=== PATIENT | male | born 1995 | race Caucasian/White ===

== ENCOUNTER 2018-05-31 03:08 | Emergency (ER) | payer BC, OTHER ==
[2018-05-31] MEDS ORDERED: Lorazepam 2 MG/ML VIAL ONE (04:12)
[2018-05-31 04:47] LABS: ALT (SGPT) 14 U/L (8-55); AST (SGOT) 13 U/L (5-34); Albumin 4.8 g/dL (3.5-5.0); Alkaline Phosphatase 89 U/L (40-150); Anion Gap 18 mmol/L (10-20); BUN (Urea Nitrogen) 7 mg/dL (8.9-20.6); Bilirubin, Total 0.3 mg/dL (0.2-1.2); Calc. Creatinine Clearance 0 mL/min (70-130); Carbon Dioxide 26 mmol/L (22-29); Chloride 105 mmol/L (98-107); Estimated GFR-MDRD Greater than 90; Globulin 2.9 g/dL (2.4-3.5); Glucose 96 mg/dL (70-105); Potassium 4.7 mmol/L (3.5-5.1); Protein, Total 7.7 g/dL (6.0-8.3); Sodium 144 mmol/L (136-145)
[2018-05-31 05:06] LABS: Hemoglobin 15.6 g/dL (14.0-18.0); Mean Corpuscular HGB CONC 33.7 g/dL (32.0-36.0); Mean Corpuscular Hemoglobin 28.5 pg (27.0-31.0); Mean Corpuscular Volume 84.6 fL (78.0-98.0); Platelet Count 198 thou/uL (130-400); RBC Distribution Width 11.6 % (11.5-14.5); Red Blood Cell (RBC) Count 5.48 mill/uL (4.70-6.10)
[2018-05-31 05:07] LABS: Band 3 % (5-11); MDiff Complete? YES; Neutrophil 81 % (42-75)
[2018-05-31 05:08] LABS: Lymphocytes 12 % (21-51); Metamyelocyte 1 % (0-0); Monocytes 3 % (0-10)
[2018-05-31 05:31] LABS: Bilirubin Negative (Negative); Blood, Urine Negative (Negative); Clarity Clear (Clear); Glucose, Urine (Dipstick) Negative (Negative); Leukocyte Negative (Negative); Nitrite Negative (Negative); Protein, Urine (Dipstick) Negative (Neg-Trace); Urobilinogen 0.2 mg/dL (0.2-1.0)
[2018-05-31 05:34] LABS: Bacteria/HPF None Seen HPF (None Seen); RBC/HPF 0-3 HPF (0-3); Squamous Epithelial 0-3 HPF (0-3); WBC/HPF 0-3 HPF (0-3)
[2018-05-31] MEDS ORDERED: Sodium Chloride 0.9% 1,000 ML BAG ONE (06:59)
--- NOTE | 2018-05-31 10:35 | RAD ---
PORTABLE CHEST: Date: 05/31/18 PROVIDED CLINICAL HISTORY: Dyspnea. FINDINGS: Cardiac and mediastinal silhouette within normal limits. Lungs appear clear. No pleural fluid or pneu mothorax apparent. IMPRESSION: No evidence for an acute cardiopulmonary process. POS: [facility]
== END 2018-05-31 06:18 | disposition home or self-care (01) ==
LOC: MADERS 03:08
DX: T67.5XXA Heat exhaustion, unspecified, initial encounter (principal); T43.611A Poisoning by caffeine, accidental (unintentional), initial encounter; F41.9 Anxiety disorder, unspecified; F17.210 Nicotine dependence, cigarettes, uncomplicated
CPT/HCPCS: 36415; 71045; 80053; 81001; 82550; 85025; 87086; 93005; 96360; 96361; J2060; J7050

== ENCOUNTER 2018-06-26 23:03 | Emergency (ER) | payer BC ==
[2018-06-26] MEDS ORDERED: Acetaminophen/Codeine 30-300mg Tablet ONE (23:32)
[2018-06-26] MEDS ORDERED: Benzonatate 100 MG CAP ONE (23:33)
[2018-06-26] MEDS ORDERED: Dexamethasone 4 MG TAB ONE (23:33)
== END 2018-06-27 00:42 | disposition home or self-care (01) ==
LOC: MADERS 23:03
DX: J20.9 Acute bronchitis, unspecified (principal); F41.9 Anxiety disorder, unspecified; F17.210 Nicotine dependence, cigarettes, uncomplicated
CPT/HCPCS: 99283; J8540

== ENCOUNTER 2022-09-11 21:44 | Emergency (ER) | payer BC, SELFPAY | END 2022-09-11 22:54 | disposition home or self-care (01) | LOC: MADERS 21:44 | DX: R00.2 Palpitations (principal); F17.210 Nicotine dependence, cigarettes, uncomplicated | CPT/HCPCS: 71045; 93005 ==

== ENCOUNTER 2022-10-14 02:47 | Emergency (ER) | payer OTHER, SELFPAY ==
[2022-10-14 03:27] LABS: #Basophils 0.1 thou/uL (0.0-0.2); #Eosinphils 0.4 thou/uL (0.0-0.7); #Lymphocytes 2.3 thou/uL (1.20-3.40); #Monocytes 0.7 thou/uL (0.11-0.59); #Neutrophils 9.3 thou/uL (1.40-6.50); %Basophils 0.5 % (0.0-1.0); %Eosinophils 3.2 % (0.0-10.0); %Monocytes 5.5 % (0.0-10.0); %Neutrophils 72.8 % (42.0-75.0); Hemoglobin 14.5 g/dL (14.0-18.0); Mean Corpuscular HGB CONC 33.7 g/dL (32.0-36.0); Mean Corpuscular Hemoglobin 29.5 pg (27.0-31.0); Mean Corpuscular Volume 87.6 fl (78.0-98.0); Mean Platelet Volume 10.1 fL (7.4-10.4); Platelet Count 171 10x3/uL (130-400); RBC Distribution Width 11.2 % (11.5-14.5); Red Blood Cell (RBC) Count 4.92 mill/uL (4.70-6.10); White Blood Cell (WBC) Count 12.8 10x3/uL (4.8-10.8)
[2022-10-14 03:49] LABS: ALT (SGPT) 27 U/L (8-55); AST (SGOT) 14 U/L (5-34); Albumin 4.3 g/dL (3.5-5.0); Alcohol Less than 10 mg/dL (Less than 10); Alkaline Phosphatase 75 U/L (40-110); Anion Gap 13 mmol/L (10-20); BUN (Urea Nitrogen) 13 mg/dL (8.9-20.6); Bilirubin, Total 0.2 mg/dL (0.2-1.2); CK (CPK) 53 U/L (30-200); Calc. Creatinine Clearance 0 mL/min (70-130); Calcium 9.6 mg/dL (7.8-10.44); Carbon Dioxide 25 mmol/L (22-29); Chloride 107 mmol/L (98-107); Estimated GFR 125; Glucose 120 mg/dL (70-105); Potassium 4.1 mmol/L (3.5-5.1); Protein, Total 7.3 g/dL (6.0-8.3); Sodium 141 mmol/L (136-145)
[2022-10-14 04:06] LABS: Amphetamine Not Detected (NotDetected); Barbiturates Screen Not Detected (NotDetected); Benzodiazepine Screen Not Detected (NotDetected); Cocaine Metabolite Screen Not Detected (NotDetected); Medtox Control Line Valid? VALID (VALID); Methadone Not Detected (NotDetected); Methamphetamine Not Detected (NotDetected); Opiate Screen Not Detected (NotDetected); Oxycodone Screen Not Detected (NotDetected); Phencyclidine (PCP) Not Detected (NotDetected); THC/Cannabinoid Screen Not Detected (NotDetected); Tricyclic Screen Not Detected (NotDetected)
== END 2022-10-14 04:29 | disposition home or self-care (01) ==
LOC: MADERS 02:47
DX: R00.2 Palpitations (principal); F17.210 Nicotine dependence, cigarettes, uncomplicated
CPT/HCPCS: 71045; 80053; 80306; 80307; 82550; 84443; 84484; 85025; 85379; 93005

== ENCOUNTER 2024-09-25 18:56 | Emergency (ER) | payer OTHER, SELFPAY ==
[2024-09-25 19:39] LABS: #Basophils 0.1 thou/uL (0.0-0.2); #Eosinophils 0.2 thou/uL (0.0-0.7); #Lymphocytes 2.2 thou/uL (1.20-3.40); #Monocytes 0.9 thou/uL (0.11-0.59); %Basophils 0.8 % (0.0-1.0); %Eosinophils 1.4 % (0.0-10.0); %Lymphocytes 13.4 % (21.0-51.0); %Monocytes 5.4 % (0.0-10.0); %Neutrophils 79.1 % (42.0-75.0); Hematocrit 45.6 % (42.0-52.0); Hemoglobin 14.7 g/dL (14.0-18.0); Mean Corpuscular HGB CONC 32.1 g/dL (32.0-36.0); Mean Corpuscular Hemoglobin 28.2 pg (27.0-31.0); Mean Corpuscular Volume 87.8 fl (78.0-98.0); Mean Platelet Volume 11.4 fL (7.4-10.4); Platelet Count 238 10x3/uL (130-400); RBC Distribution Width 12.1 % (11.5-14.5); White Blood Cell (WBC) Count 16.5 10x3/uL (4.8-10.8)
[2024-09-25 19:46] LABS: Bilirubin Negative (Negative); Blood, Urine Negative (Negative); Clarity Clear (Clear); Glucose, Urine (Dipstick) Negative (Negative); Ketone, Urine Negative (Negative); Leukocyte Negative (Negative); Nitrite Negative (Negative); Protein, Urine (Dipstick) Negative (Neg-Trace); Urobilinogen 0.2 mg/dL (Less than 2); pH, Urine 5.5 (5.0-9.0)
[2024-09-25 19:49] LABS: Specific Gravity, Urine 1.003 (1.002-1.036)
[2024-09-25 19:50] LABS: Bacteria/HPF Rare-Few HPF (None Seen); CAUTI Indications for Culture Dysuria,urgency,freq; RBC/HPF 0-3 HPF (0-3); Squamous Epithelial 0-3 HPF (0-3); WBC/HPF 0-3 HPF (0-3)
[2024-09-25 19:51] LABS: Urine Culture Reflex No No
[2024-09-25 19:54] LABS: Amphetamine Not Detected (NotDetected); Barbiturates Screen Not Detected (NotDetected); Benzodiazepine Screen Not Detected (NotDetected); Cocaine Metabolite Screen Not Detected (NotDetected); Methadone Not Detected (NotDetected); Methamphetamine Not Detected (NotDetected); Opiate Screen Not Detected (NotDetected); Oxycodone Screen Not Detected (NotDetected); Phencyclidine (PCP) Not Detected (NotDetected); THC/Cannabinoid Screen Not Detected (NotDetected); Tricyclic Screen Not Detected (NotDetected)
[2024-09-25 19:56] LABS: ALT (SGPT) 22 U/L (8-55); AST (SGOT) 16 U/L (5-34); Albumin 4.3 g/dL (3.5-5.0); Alkaline Phosphatase 110 U/L (40-110); Anion Gap 16 mmol/L (10-20); BUN (Urea Nitrogen) 9 mg/dL (8.9-20.6); Bilirubin, Total 0.2 mg/dL (0.2-1.2); Calc. Creatinine Clearance 0 mL/min (70-130); Calcium 9.5 mg/dL (7.8-10.44); Carbon Dioxide 23 mmol/L (22-29); Chloride 106 mmol/L (98-107); Estimated GFR 122; Globulin 3.3 g/dL (2.4-3.5); Glucose 79 mg/dL (70-105); Potassium 3.8 mmol/L (3.5-5.1); Protein, Total 7.6 g/dL (6.0-8.3); Sodium 141 mmol/L (136-145)
[2024-09-25 19:58] LABS: Troponin I Less than 0.010 ng/mL (< 0.028)
[2024-09-25] MEDS ORDERED: Ondansetron PF 4 MG/2 ML Vial ONE (20:03)
[2024-09-25] MEDS ORDERED: Acetaminophen 500 MG TAB ONE (20:03)
[2024-09-25 22:54] LABS: Troponin I Less than 0.010 ng/mL (< 0.028)
== END 2024-09-25 23:35 | disposition home or self-care (01) ==
LOC: MADERS 18:56
DX: R07.9 Chest pain, unspecified (principal); K02.9 Dental caries, unspecified; N61.1 Abscess of the breast and nipple; H60.63 Unspecified chronic otitis externa, bilateral; H66.93 Otitis media, unspecified, bilateral; H73.93 Unspecified disorder of tympanic membrane, bilateral; F17.210 Nicotine dependence, cigarettes, uncomplicated
CPT/HCPCS: 36415; 71046; 80053; 80306; 81001; 84484; 85025; 85379; 87070; 87077; 87205; 93005; 94760; J2405